=== PATIENT | male | born 1950 | race Caucasian/White ===

== ENCOUNTER 2023-05-18 20:49 | Inpatient (IN) ==
[2023-05-18 21:32] LABS: Appearance Urine Clear (Clear); Bilirubin Urine 3+ (Negative); Blood Urine Trace-intact (Negative); Glucose Urine UA Trace (Negative); Ketones Urine Trace (Negative); Leukocyte Esterase Urine Negative (Negative); Nitrite Urine Negative (Negative); Protein Urine 1+ (Negative); Specific Gravity Urine 1.025 (1.000-1.030); Urobilinogen Urine Negative (Negative)
[2023-05-18 21:33] LABS: Color Urine Dark Yellow
[2023-05-18 21:35] LABS: Basophils # (auto) 0.06 K/uL (0.00-0.20); Basophils % (auto) 0.6 %; Eosinophils # (auto) 0.36 K/uL (0.00-0.50); Eosinophils % (auto) 3.8 %; Hematocrit (blood only) 41.9 % (42.0-52.0); Hemoglobin 14.9 g/dl (14.0-18.0); Immature Granulocytes # (auto) 0.03 K/uL (0.01-0.20); Immature Granulocytes % (auto) 0.3 %; Lymphocytes # (auto) 2.35 K/uL (1.20-3.40); Lymphocytes % (auto) 24.9 %; Mean Corpuscular Hgb Conc 35.6 g/dL (32.0-36.0); Mean Corpuscular Volume 84.5 fL (80.0-100.0); Mean Platelet Volume 9.6 fL (9.4-12.4); Monocytes # (auto) 0.92 K/uL (0.11-0.59); Monocytes % (auto) 9.8 %; Neutrophils % (auto) 60.6 %; Platelet Count 384 K/uL (130-400); RDW Standard Deviation 45.7 fL (36.4-46.3); Red Blood Count 4.96 M/uL (4.70-6.10); White Blood Count 9.42 K/ul (4.8-10.8)
[2023-05-18 21:50] LABS: Mucus Urine Present (None Prsent)
[2023-05-18 21:53] LABS: Albumin Globulin Ratio 1.7 (0.9-2); Albumin Level 4.5 gm/dl (3.4-5.0); BUN Creatinine Ratio 16.9 (10-20); Bilirubin,Total 12.1 mg/dl (0.2-1.0); Calcium 9.9 mg/dl (8.6-10.3); Est GFR (Non-African American) 62.2 ml/min; Globulin 2.7 gm/dl (2.5-4.0); Potassium 2.8 mmol/L (3.5-5.1); Total Protein 7.2 gm/dl (6.0-8.3)
[2023-05-18 21:53] LABS: Bacteria Urine Negative (Negative)
--- NOTE | 2023-05-18 22:11 | Emergency Department Note ---
Impression & Plan Jaundice, Elevated bilirubin ED Provider Note NAME: KIMBERLY MCDANIEL AGE: 72 SEX: M : 1950 ARRIVES VIA: Walk-In INFORMANT: Patient, ED PROVIDER(S): Eliza Phillips MD CHIEF COMPLAINT: Jaundice HPI: This is a 72-year-old female presenting for jaundice. Patient states that he recently had a cholecystectomy. He had an unremarkable follow-up with his surgeon. He has been recovering well. However over the past 1 PCC's at this point physical He has noted that he is becoming more yellow. He has had somewhat loose stools occasionally. His stools are also martinez in color. He notes his eyes are yellow as well as his skin. He notes some slight nausea. No significant pain only mild crampy pain very rarely. Otherwise no fevers, chills, profuse vomiting. Patient recently just returned from a trip to [facility]. States he felt unwell during the entire trip. Prior to going on the trip he had a bout of significant right/middle abdominal pain. He notes his pain had resolved and and he went on his trip. ROS: See above HPI for pertinent positives & negatives. A total of 10 systems reviewed and were otherwise negative. PAST MEDICAL HISTORY: See Below PAST SURGICAL HISTORY: See Below FAMILY HISTORY: See Below SOCIAL HISTORY: See Below HOME MEDICATIONS: See Below ALLERGIES: See Below VITALS: See Below PHYSICAL EXAMINATION: General: resting comfortably in no acute distress Head: Normocephalic and atraumatic Eyes: Scleral icterus, EOMI Ear, nose, throat: Normal external exam Neck: Normal range of motion Respiratory: lungs clear to auscultation bilaterally Cardiovascular: Regular rate/rhythm, no murmur GI: soft, nontender, no guarding or rebound Extremities: nontender, moves all extremities Neuro: The patient awake and alert, appropriately conversive, no focal deficits, symmetric faces Skin: Jaundiced skin centrally MEDICAL DECISION MAKING: This is a 72-year-old male presenting for jaundice. Patient underwent cholecystectomy. Now having jaundice skin, martinez stools, diarrhea. Also had recent travel to Will do basic blood work as well as CT imaging to rule out any intra-abdominal infection versus retained stone. -Patient has a reassuring physical exam without any abdominal tenderness at this time. Vital signs reviewed showing no tachycardia, hypotension or fever. -Lab does confirm jaundice with bilirubin over 12 at this time, will order direct -Direct bilirubin 6.1 -Patient also has transaminitis with AST 135 ALT 274, alk phos 470, lipase 110 -Urinalysis shows mild WBC without leuk esterase, nitrates, possible contamination, no bacteria -Otherwise CT abdomen/pelvis reveals hepatic steatosis without clear cause for patient's current jaundice. -Discussed case with on-call GI, Dr. Shrestha, who recommends admission to the hospital for MRCP and possible further testing -After long discussion, patient is requesting transfer to [facility] for his further care. I did advise that because we have the capacity here this to be a nonemergent transfer. -After discussion with both hospitalist and GI physician at [facility], they declined transfer as they have significant overcrowding with no current available beds and multiple ER holds. They state that they could reconsider after MRCP if needed. -Patient comfortable with admission to this hospital. Differential diagnosis: Retained biliary stone, cholangitis, pancreatic cancer, postsurgical abscess ER treatment provided: See below Diagnostics interpreted by me: ECG: None Cardiac Monitoring: An order was placed for continuous cardiac monitoring. The monitor shows a rate of 55 with sinus rhythm. Laboratory studies: As stated above and show below. Imaging studies: See below. Past Med/Surg History Medical History Situational stress Hx of gout Elevated PSA Osteoarthritis BPH (benign prostatic hyperplasia) Sleep apnea Hypercholesteremia HTN (hypertension) Surgical History Hx laparoscopic cholecystectomy (04/23/23) Hx of bilateral cataract extraction H/O hand surgery History of esophagogastroduodenoscopy (EGD) History of colonoscopy History of cardiac cath S/P wisdom tooth extraction S/P parathyroidectomy S/P vasectomy S/P tonsillectomy Family History Mother Colorectal cancer Father Myocardial infarction Heart disease Brother Kidney stones Hypertension Other No family history of adverse response to anesthesia Denies family history of Ovarian cancer Prostate cancer Breast cancer Social History Smoking Status: Never smoker Second Hand Exposure: No; Do You Dip or Chew Tobacco: No; Hx Alcohol Use: Yes Alcohol type: beer Alcohol Intake Frequency: 2-3 x/Week Hx Substance Use: No Preferred Language: Danish Communication Ability: Effective Visual Impairment: No Limitations Hearing Ability: Use of Hearing Aid Valve Grinder Required: No Beliefs That Will Affect Care: None marital status: Current Living Situation: Spouse current occupational status: retired current occupation: used to work in the [employer] and then worked for the [employer] Feels Safe at Home: Yes Safety Concerns: Feels Safe At This Time Childhood Exposure to Second-Hand Smoke: Yes Diet: regular Diet Comment: regular during the past year weight has: remained stable Dental Care, Regularly: Yes Physical Activity Frequency: 3-4 Times per Week Physical Activity Frequency Comment: golfs, walking actively about 1 hour Seatbelt Use: always Sunscreen Use: Yes Assistive Devices: None Allergies Allergies Allergy/AdvReac Type Severity Reaction Status Date / Time hydrocodone [From Vicodin] AdvReac Anxiety Verified 05/09/23 10:39 Home Meds Home Medications Medication Instructions Recorded Confirmed demetrio seed oil-omega 3-6-9 1,000 mg 1 cap PO BID 03/31/20 05/09/23 (630 mg-210 mg-72mg) capsule coenzyme Q10 200 mg oral wafer 200 mg PO BID 03/31/20 05/09/23 multivitamin (Daily Multi-Vitamin 1 tab PO QPM 03/31/20 05/09/23 tablet) ezetimibe 10 mg tablet (Zetia) 10 mg PO QAM 04/10/23 05/09/23 sertraline 50 mg tablet 50 mg PO QAM 04/10/23 05/09/23 Previous Rx's Medication Instructions Recorded rosuvastatin 40 mg tablet 40 mg PO QAM #90 tabs 05/30/22 labetalol 300 mg tablet 300 mg PO BID 90 days #180 tabs 08/27/22 lisinopril 40 mg tablet 40 mg PO QPM #90 tabs 11/13/22 hydrochlorothiazide 25 mg tablet 25 mg PO QAM #90 tabs 12/05/22 tamsulosin 0.4 mg capsule (Flomax) 0.4 mg PO BID #180 caps 12/20/22 amlodipine 10 mg tablet 10 mg PO QPM #90 tabs 03/26/23 potassium chloride 20 mEq 20 meq PO BID #180 tabs 04/29/23 tablet,extended release Results & Data (ED) Vital Signs Vital Signs - 24 hr 05/18/23 20:57 05/18/23 21:25 05/18/23 21:30 Temperature 36.5 C Temperature Source Temporal Artery Scan Pulse Rate 68 53 L 54 L Respiratory Rate 18 15 Respiratory Effort / Characteristics Non-Labored Spontaneous Respiratory Depth Normal Respiratory Pattern Regular Blood Pressure 141/93 H 127/79 Blood Pressure Mean 109 95 Blood Pressure Position Sitting Pulse Oximetry 96 96 Oxygen Delivery Method Room Air Room Air Sepsis Recent Fever Within 48 Hours No Sepsis New/Unexplained Change in Mental Status N/A Sepsis Action Taken by Nursing No Action Required 05/18/23 22:00 05/18/23 22:25 05/18/23 22:30 Temperature Temperature Source Pulse Rate 54 L 58 L 57 L Respiratory Rate 14 20 18 Respiratory Effort / Characteristics Respiratory Depth Respiratory Pattern Blood Pressure 146/78 H 149/90 H 130/75 Blood Pressure Mean 100 109 93 Blood Pressure Position Pulse Oximetry 95 96 96 Oxygen Delivery Method Room Air Room Air Room Air Sepsis Recent Fever Within 48 Hours Sepsis New/Unexplained Change in Mental Status Sepsis Action Taken by Nursing 05/18/23 23:30 05/19/23 00:00 05/19/23 00:30 Temperature Temperature Source Pulse Rate 56 L 50 L 55 L Respiratory Rate 16 18 16 Respiratory Effort / Characteristics Respiratory Depth Respiratory Pattern Blood Pressure 135/86 126/81 128/81 Blood Pressure Mean 102 96 96 Blood Pressure Position Pulse Oximetry 97 95 97 Oxygen Delivery Method Room Air Room Air Room Air Sepsis Recent Fever Within 48 Hours Sepsis New/Unexplained Change in Mental Status Sepsis Action Taken by Nursing 05/19/23 01:43 05/19/23 02:00 Temperature Temperature Source Pulse Rate 64 62 Respiratory Rate 16 Respiratory Effort / Characteristics Respiratory Depth Respiratory Pattern Blood Pressure 116/77 Blood Pressure Mean 90 Blood Pressure Position Pulse Oximetry 94 Oxygen Delivery Method Room Air Sepsis Recent Fever Within 48 Hours Sepsis New/Unexplained Change in Mental Status Sepsis Action Taken by Nursing Laboratory Data 05/18/23 21:16 05/18/23 21:16 Lab Results 05/18/23 05/18/23 Range/Units 21:10 21:16 WBC 9.42 (4.8-10.8) K/ul RBC 4.96 (4.70-6.10) M/uL Hgb 14.9 (14.0-18.0) g/dl Hct 41.9 L (42.0-52.0) % MCV 84.5 (80.0-100.0) fL MCH 30.0 (25.0-34.0) pg MCHC 35.6 (32.0-36.0) g/dL RDW Std Deviation 45.7 (36.4-46.3) fL RDW Coeff of Vasiliy 15.0 H (11.5-14.5) % Plt Count 384 (130-400) K/uL MPV 9.6 (9.4-12.4) fL Immature Gran % (Auto) 0.3 % Neut % (Auto) 60.6 % Lymph % (Auto) 24.9 % Dixon % (Auto) 9.8 % Eos % (Auto) 3.8 % Baso % (Auto) 0.6 % Neut # (Auto) 5.70 (1.40-6.50) K/uL Lymph # (Auto) 2.35 (1.20-3.40) K/uL Dixon # (Auto) 0.92 H (0.11-0.59) K/uL Eos # (Auto) 0.36 (0.00-0.50) K/uL Baso # (Auto) 0.06 (0.00-0.20) K/uL Immature Gran # (Auto) 0.03 (0.01-0.20) K/uL Sodium 137 (136-145) mmol/L Potassium 2.8 L (3.5-5.1) mmol/L Chloride 97 L (98-107) mmol/L Carbon Dioxide 29 (21-32) mmol/L Anion Gap 11 (3-11) BUN 20 (6-23) mg/dl Creatinine 1.18 (0.6-1.4) mg/dl Est Cr Clr Drug Dosing 63.0 ml/min Est GFR ( Amer) 72.0 ml/min Est GFR (Non-Af Amer) 62.2 ml/min BUN/Creatinine Ratio 16.9 (10-20) Glucose 102 H (70-99(Fasting)) mg/dl Calcium 9.9 (8.6-10.3) mg/dl Total Bilirubin 12.1 H (0.2-1.0) mg/dl Direct Bilirubin 6.1 H (0-0.2) mg/dl AST 135 H (13-39) U/L ALT 274 H (7-52) U/L Alkaline Phosphatase 470 H (34-104) U/L Total Protein 7.2 (6.0-8.3) gm/dl Albumin 4.5 (3.4-5.0) gm/dl Globulin 2.7 (2.5-4.0) gm/dl Albumin/Globulin Ratio 1.7 (0.9-2) Lipase 110 H (11-82) U/L Urine Color Dark Yellow Urine Appearance Clear (Clear) Urine pH 6.0 (4.5-7.5) Ur Specific [place] 1.025 (1.000-1.030) Urine Protein 1+ H (Negative) Urine Glucose (UA) Trace H (Negative) Urine Ketones Trace H (Negative) Urine Blood Trace-intact H (Negative) Urine Nitrite Negative (Negative) Urine Bilirubin 3+ H (Negative) Urine Urobilinogen Negative (Negative) Ur Leukocyte Esterase Negative (Negative) Urine RBC 5-10 H (0-4) /hpf Urine WBC 10-30 H (0-5) /hpf Ur Epithelial Cells 5-10 H (0-5) /lpf Urine Bacteria Negative (Negative) Hyaline Casts 10-30 H (0-5) /lpf WBC Casts 5-10 H (0) /lpf Urine Mucus Present A (None Prsent) Administered Medications Acetaminophen (Acetaminophen 500 Mg Tab) 500 mg PO Q6H PRN PRN Reason: pain/fever Stop: 06/18/23 05:09 Last Admin: 05/19/23 06:27 Dose: 500 mg Documented By: JUANA Ezetimibe (Ezetimibe 10 Mg Tab) 10 mg PO [facility] Stop: 06/18/23 08:59 Last Admin: 05/19/23 08:06 Dose: 10 mg Documented By: OLIVER Enoxaparin Sodium (Enoxaparin Inj 40 Mg/0.4 Ml Syr) 40 mg SQ [facility] Stop: 06/18/23 08:59 Last Admin: 05/19/23 08:07 Dose: 40 mg Documented By: OLIVER Hydrochlorothiazide (Hydrochlorothiazide 25 Mg Tab) 25 mg PO [facility] Stop: 06/18/23 08:59 Last Admin: 05/19/23 08:07 Dose: 25 mg Documented By: OLIVER Lorazepam 1 mg/ Syringe 1 mls @ 2 mls/min IV ONCE PRN PRN Reason: Anxiety Stop: 06/18/23 09:39 Last Admin: 05/19/23 10:26 Dose: 2 mls/min Documented By: OLIVER Labetalol HCl (Labetalol Hcl 300 Mg Tab) 300 mg PO BID MARCELINA Stop: 06/18/23 08:59 Last Admin: 05/19/23 08:06 Dose: Not Given Documented By: OLIVER Sertraline HCl (Sertraline Hcl 50 Mg Tablet) 50 mg PO QAM MARCELINA Stop: 06/18/23 08:59 Last Admin: 05/19/23 08:06 Dose: 50 mg Documented By: OLIVER Tamsulosin HCl (Tamsulosin Hcl 0.4 Mg Cap) 0.4 mg PO BID [facility] Stop: 06/18/23 08:59 Last Admin: 05/19/23 08:06 Dose: 0.4 mg Documented By: OLIVER Discontinued Medications Amlodipine Besylate (Amlodipine Besylate 5 Mg Tab) 10 mg PO NOW ONE Stop: 05/19/23 03:05 Last Admin: 05/19/23 03:38 Dose: 10 mg Documented By: OLIVER(2) Potassium Chloride (K Huey / Wtr) 10 meq in 100 mls @ 100 mls/hr IV Q1H MARCELINA Stop: 05/19/23 10:59 Last Admin: 05/19/23 13:56 Dose: 75 mls/hr Documented By: Infusion: 05/19/23 13:54 Dose: Infused Documented By: Admin: 05/19/23 12:42 Dose: 75 mls/hr Documented By: Infusion: 05/19/23 12:41 Dose: Infused Documented By: Infusion: 05/19/23 11:24 Dose: 75 mls/hr Documented By: Infusion: 05/19/23 10:33 Dose: 0 mls/hr Documented By: Admin: 05/19/23 10:02 Dose: 75 mls/hr Documented By: Infusion: 05/19/23 10:00 Dose: Infused Documented By: Admin: 05/19/23 08:18 Dose: 75 mls/hr Documented By: Infusion: 05/19/23 08:17 Dose: Infused Documented By: Infusion: 05/19/23 07:11 Dose: 75 mls/hr Documented By: Admin: 05/19/23 07:02 Dose: 100 mls/hr Documented By: Infusion: 05/19/23 06:41 Dose: Infused Documented By: Admin: 05/19/23 05:41 Dose: 100 mls/hr Documented By: UJANA Piperacillin Sod/Tazobactam (Sod 4.5 gm/ Dextrose) 100 mls @ 200 mls/hr IV NOW ONE; Protocol Stop: 05/19/23 05:29 Last Infusion: 05/19/23 06:31 Dose: Infused Documented By: Admin: 05/19/23 05:40 Dose: 200 mls/hr Documented By: JUANA Ioversol (Optiray 320 500ml) 87 ml IV ONCE ONE Stop: 05/18/23 22:18 Last Admin: 05/18/23 22:17 Dose: 87 ml Documented By: JUANY Lisinopril (Lisinopril 40 Mg Tab) 40 mg PO NOW ONE Stop: 05/19/23 03:05 Last Admin: 05/19/23 03:38 Dose: 40 mg Documented By: OLIVER(2) Tamsulosin HCl (Tamsulosin Hcl 0.4 Mg Cap) 0.4 mg PO NOW ONE Stop: 05/19/23 03:05 Last Admin: 05/19/23 03:38 Dose: 0.4 mg Documented By: OLIVER(2) Discharge Plan Visit Data Chief Complaint: GI Assessment Stated Complaint: JAUNDICE,?BLOCKED BILE DUCT,GALLBADER REMOVAL COMP ED Provider: Eliza Phillips Discharge Problem: Jaundice, Elevated bilirubin Patient Disposition: Admitted As Inpatient Discharge Instructions Interventions: ED Discharge Assessment Last Done: 05/19/23 04:20
[2023-05-18] MEDS ORDERED: OPTIRAY 320 500ml IV ONE (22:17)
--- NOTE | 2023-05-18 23:57 | CT Scan Report ---
Exam(s): CT ABDOMEN + PELVIS With Contrast IV Amt: 87 ml optiray 320 EXAM: CT Abdomen and Pelvis With Intravenous Contrast CLINICAL HISTORY: Reason for exam: Recent cholecystomy, pain, jaundice?. TECHNIQUE: Axial computed tomography images of the abdomen and pelvis with intravenous contrast. CTDI is 26.62 mGy and DLP is 1245.4 mGy-cm. Automated exposure control was utilized for the study. A dose lowering technique was utilized adhering to the principles of ALARA. CONTRAST: Patient received 87 ml optiray 320 of IV contrast COMPARISON: No relevant prior studies available. FINDINGS: Lung bases: Unremarkable. No mass. No consolidation. ABDOMEN: Liver: Hepatic steatosis. Gallbladder and bile ducts: Cholecystectomy. No ductal dilation. Pancreas: Unremarkable. No mass. No ductal dilation. Spleen: Unremarkable. No splenomegaly. Adrenals: Unremarkable. No mass. Kidneys and ureters: Unremarkable. No hydronephrosis or delayed nephrogram. Stomach and bowel: Diverticulosis, without acute diverticulitis. No small bowel obstruction. No free intraperitoneal air. PELVIS: Appendix: No findings to suggest acute appendicitis. Bladder: Unremarkable. No mass. Reproductive: Enlarged prostate gland, measures 5.2 cm. ABDOMEN and PELVIS: Intraperitoneal space: Unremarkable. No free air. No significant fluid collection. Bones/joints: Degenerative changes of the spine. No acute fracture. No dislocation. Soft tissues: Fat-containing bilateral inguinal hernias. Vasculature: Atherosclerotic changes of the aorta. No abdominal aortic aneurysm. Lymph nodes: Unremarkable. No enlarged lymph nodes. IMPRESSION: 1. No hydronephrosis or delayed nephrogram. 2. Enlarged prostate gland, measures 5.2 cm. 3. Cholecystectomy. 4. Hepatic steatosis. 5. Fat-containing bilateral inguinal hernias. 6. Diverticulosis, without acute diverticulitis. No small bowel obstruction. No free intraperitoneal air. Electronically signed by: John Kay MD 05/18/23 23:56 PM
--- NOTE | 2023-05-19 00:40 | History & Physical Report ---
Date of Service May 19, 2023 Assessment & Plan (1) S/P cholecystectomy: (2) Hypertriglyceridemia: (3) Anxiety: (4) BPH associated with nocturia: (5) HTN (hypertension): (6) Hypercholesteremia: (7) Jaundice: (8) Elevated bilirubin: Plan Elevated Bilirubin | Jaundice | S/P Cholecystectomy -CT A/P without obvious CBD enlargement -Total bili 12.1, Direct bili 6.1, AST- 135, ALT- 274, Alk phos- 470 -MRCP ordered, differential includes cholangitis, bile duct stone, cholangiocarcinoma, biliary colic, hepatitis -[facility]/Dr. Garcia consulted -No obvious infection with normal CBC, afebrile but will order 1x dose of Zosyn while awaiting further imaging as cholangitis remains on differential -Hepatitis panel pending. Patient has history of recent travel to [facility], however symptoms seem to have started the day prior to trip and no eosinophilia, low suspicion for parasite. -Repeat CBC w diff, CMP in a.m. -NPO while awaiting GI evaluation -Zofran PRN for nausea Hypokalemia -Patient on potassium sparing diuretics at home -Ordered KCl as outpatient, but patient unable to tolerate PO repletion -K of 2.8 on arrival, repletion ordered. Repeat metabolic panel in a.m. Hypertension -Continue home Lisinopril, Labetalol, HCTZ, Amlodipine Hypercholesteremia -Continue home statin BPH -Continue Flomax Anxiety -Continue home Sertraline Diet: NPO Admit to Med/Surg VTE Prophylaxis: Lovenox Code Status: Full Code History of Present Illness Primary Care Provider: Cyndi Silva MD Nirav Stout is a 72 year-old male with a past medical history of HTN, arthritis, anxiety, s/p cholecystectomy (04/23/23) who presented to the ED due to nausea and blane/martinez colored stools. He notes that he had been feeling well since his surgery- only occasional nausea. But last Saturday he was in [place] and experienced an episode of LUQ cramping/abdominal pain after taking his evening medications. However the next day he felt well enough to go on his scheduled trip to the [facility] with his . During the trip he felt under the weather with nausea, fatigue, etc. but starting this past Saturday he has had significant nausea and grayish colored stools (now loose/diarrhea consistency). He notes that he and his had been in the [place] on vacation when symptoms worsened, they only [place] the [place] in the past day. His also notes that he has appeared jaundiced in the past day. He denies abdominal cramping/pain, denies chest pain/shortness of breath, fever, bodyaches/chills. ED Course: -CT A/P obtained, no obvious widening of CBD -Dr. Phillips discussed case with [facility]Dr. Garcia Allergies Allergy/AdvReac Type Severity Reaction Status Date / Time hydrocodone [From Vicodin] AdvReac Anxiety Verified 05/09/23 10:39 Home Medications Medication Instructions Recorded Confirmed Type demetrio seed oil-omega 3-6-9 1,000 mg 1 cap PO BID 03/31/20 05/09/23 History (630 mg-210 mg-72mg) capsule coenzyme Q10 200 mg oral wafer 200 mg PO BID 03/31/20 05/09/23 History multivitamin (Daily Multi-Vitamin 1 tab PO QPM 03/31/20 05/09/23 History tablet) rosuvastatin 40 mg tablet 40 mg PO QAM #90 tabs 05/30/22 05/09/23 Rx labetalol 300 mg tablet 300 mg PO BID 90 days #180 tabs 08/27/22 05/09/23 Rx lisinopril 40 mg tablet 40 mg PO QPM #90 tabs 11/13/22 05/09/23 Rx hydrochlorothiazide 25 mg tablet 25 mg PO QAM #90 tabs 12/05/22 05/09/23 Rx tamsulosin 0.4 mg capsule (Flomax) 0.4 mg PO BID #180 caps 12/20/22 05/09/23 Rx amlodipine 10 mg tablet 10 mg PO QPM #90 tabs 03/26/23 05/09/23 Rx ezetimibe 10 mg tablet (Zetia) 10 mg PO QAM 04/10/23 05/09/23 History sertraline 50 mg tablet 50 mg PO QAM 04/10/23 05/09/23 History potassium chloride 20 mEq 20 meq PO BID #180 tabs 04/29/23 05/09/23 Rx tablet,extended release Past Med/Surg History Medical History Situational stress hx-had been having a difficult time in the workplace and used the zoloft "to level things out for him" Hx of gout remote hx Elevated PSA Osteoarthritis BPH (benign prostatic hyperplasia) Sleep apnea CPAP Hypercholesteremia HTN (hypertension) Surgical History Hx laparoscopic cholecystectomy (04/23/23) Laparoscopic Cholecystectomy(Not Applicable) - Praveen Murray, DO Hx of bilateral cataract extraction H/O hand surgery History of esophagogastroduodenoscopy (EGD) History of colonoscopy History of cardiac cath ~age 45, [place], [place]; no stents, abnormal stress test during a study at the [employer]>no findings; f/u PCP S/P wisdom tooth extraction S/P parathyroidectomy S/P vasectomy S/P tonsillectomy Family History Mother Colorectal cancer Father Myocardial infarction Heart disease Brother Kidney stones Hypertension Other No family history of adverse response to anesthesia Denies family history of Ovarian cancer Prostate cancer Breast cancer Social History Smoking Status: Never smoker Second Hand Exposure: No; Do You Dip or Chew Tobacco: No; Hx Alcohol Use: Yes Alcohol type: beer Alcohol Intake Frequency: 2-3 x/Week Hx Substance Use: No Preferred Language: Spanish Communication Ability: Effective Visual Impairment: No Limitations Hearing Ability: Use of Hearing Aid 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: No Beliefs That Will Affect Care: None marital status: Current Living Situation: Spouse current occupational status: retired current occupation: used to work in the [employer] and then worked for the [employer] Feels Safe at Home: Yes Safety Concerns: Feels Safe At This Time Childhood Exposure to Second-Hand Smoke: Yes Diet: regular Diet Comment: regular during the past year weight has: remained stable Dental Care, Regularly: Yes Physical Activity Frequency: 3-4 Times per Week Physical Activity Frequency Comment: golfs, walking actively about 1 hour Seatbelt Use: always Sunscreen Use: Yes Assistive Devices: None Review of Systems Review of Systems: As per above Physical Exam Constitutional: WD/WN, vitals as above Eyes: Scleral icterus ENMT: Ears: no external ear abnormality Nose: no external nose abnormality Moist mucous membranes Respiratory: normal respiratory effort, lungs clear to auscultation Cardiovascular: Rate/Rhythm: regular rate and regular rhythm Extremities: no edema Gastrointestinal (Abdomen): Inspection/Auscultation: abdomen normal to inspection and normal bowel sounds; abdomen not distended Percussion/Palpation: abdomen soft; abdomen nontender and no hepatosplenomegaly Musculoskeletal: Moves all limbs independently Skin: + jaundice Psychiatric: A+Ox3, euthymic affect Results & Data Results & Data Vital Signs (Past 12 Hours) Vital Signs Temp Pulse Resp BP Pulse Ox O2 Del Method 05/19/23 00:00 50 L 18 126/81 95 Room Air 05/18/23 23:30 56 L 16 135/86 97 Room Air 05/18/23 22:30 57 L 18 130/75 96 Room Air 05/18/23 22:25 58 L 20 149/90 H 96 Room Air 05/18/23 22:00 54 L 14 146/78 H 95 Room Air 05/18/23 21:30 54 L 15 127/79 96 Room Air 05/18/23 21:25 53 L 05/18/23 20:57 36.5 C 68 18 141/93 H 96 Room Air Supervising Physician Co-Signing Physician Notes Attending addendum: I have physically seen this patient, have supervised the medical residents activities, and agree with the H&P unless as otherwise noted. Assessment and Plan: Abnormal LFTs- Status post laparoscopic cholecystectomy on 04/23/2023 Patient presented to the emergency department with concerns regarding friends and family noticing him becoming yellow. The patient reports that he had traveled to [place] and went to dinner with friends, and ate well, and then shortly thereafter when he went back to his hotel, and took his medications, he developed significant abdominal discomfort. His symptoms improved, and then the following day Saturday he went on a trip with 150 other people to the [facility]. While he was admitted colic, he became fatigued, and generally weak, and gradually became more yellow. He presents to the emergency department as send he got back from the trip, for evaluation. He reports no unusual food intakes, and does not know of any other person on the trip who had similar symptoms. He is not aware of any type of insect or other bites while he was there. AST 135, ALT 274, total bilirubin 12.1, ALP 470, and lipase 110 CT scan of abdomen pelvis without significant CBD enlargement MRCP ordered Consults to [facility] gastroenterology Dr. Garcia Order acute hepatitis panel NPO until further evaluation Hypokalemia- Potassium 2.8 on admission Supplementation with IV fluids, and recheck laboratories in a.m. Hypertension- Continue lisinopril, labetalol, and amlodipine Hold HCTZ Remaining orders and notations as noted Resident Activity Tracking Resident Involvement: Resident Care Provided Care Provided: Adult Hospital Medicine
[2023-05-19 02:02] LABS: Bilirubin Direct 6.1 mg/dl (0-0.2)
[2023-05-19] MEDS ORDERED: lisinopril 40 MG TAB PO ONE (03:04)
[2023-05-19] MEDS ORDERED: amLODIPine BESYLATE 5 MG TAB PO ONE (03:04)
[2023-05-19] MEDS ORDERED: TAMSULOSIN HCL 0.4 MG CAP PO ONE (03:04)
[2023-05-19] MEDS ORDERED: POLYETHYLENE (MIRALAX) 17 GM PACK PO PRN (04:50)
[2023-05-19] MEDS ORDERED: ONDANSETRON INJ 2 MG/ML 2 ML VIAL IV PRN (04:50)
[2023-05-19] MEDS ORDERED: MELATONIN 3 MG TAB PO PRN (04:50)
[2023-05-19] MEDS ORDERED: PIPERACILLIN/TAZOBACTAM 4.5 GM in DEXTROSE 5% MINI-B 100 ML IV ONE (05:00)
[2023-05-19] MEDS ORDERED: ACETAMINOPHEN 500 MG TAB PO PRN (05:10)
[2023-05-19] MEDS: POTASSIUM CHLORIDE / WTR 10 MEQ/100 ML PLCT IV SCH ×6 (05:41→13:56)
[2023-05-19] MEDS: EZETIMIBE 10 MG TAB PO SCH (08:06)
[2023-05-19] MEDS: LABETALOL HCL 300 MG TAB PO SCH ×2 (08:06→20:04)
[2023-05-19] MEDS: SERTRALINE HCL 50 MG TABLET PO SCH (08:06)
[2023-05-19] MEDS: TAMSULOSIN HCL 0.4 MG CAP PO SCH ×2 (08:06→20:04)
[2023-05-19] MEDS: hydroCHLOROthiazide 25 MG TAB PO SCH (08:07)
[2023-05-19] MEDS: ENOXAPARIN INJ 40 MG/0.4 ML SYR SQ SCH (08:07)
[2023-05-19] MEDS ORDERED: ROSUVASTATIN CALCIUM 20 MG TAB PO SCH (09:00)
[2023-05-19] MEDS ORDERED: LORazepam 1 MG in SYRINGE 0.5 ML IV PRN (09:40)
--- NOTE | 2023-05-19 11:36 | Magnetic Resonance Report ---
MR MRCP CLINICAL HISTORY: jaundice, elevated bili TECHNIQUE: Multiplanar multisequence MR images of the abdomen were obtained, as per MRCP protocol. . COMPARISON: Comparison is made to CT abdomen pelvis 05/18/2023 FINDINGS: Lower chest: No acute abnormality Liver: Unremarkable. No focal lesions are seen. Gallbladder and biliary tree: No calcified gallstones. Normal caliber wall. No intra- or extrahepatic biliary ductal dilation. Pancreas: Unremarkable, no focal lesions. Spleen: Unremarkable. Adrenals: Unremarkable. Kidneys and ureters: Unremarkable. Bowel: Unremarkable. Lymph nodes Retroperitoneal: Subcentimeter elie hepatis nodes are noted. Mesenteric: Unremarkable. Peritoneum: Normal Vessels: Unremarkable. Abdominal wall: Unremarkable. Bones: Unremarkable. IMPRESSION: No acute abnormality and in particular no evidence of choledocholithiasis or biliary ductal obstructi on. ACT 112: Negative or not required by law. Electronically signed by: Haseeb Chan M.D. 05/19/2023 11:34 AM
--- NOTE | 2023-05-19 14:42 | Communication Note ---
Date of Service: May 19, 2023 Please refer to the H&P dictated by resident Tami Maldonado for details of presentation on admission earlier this morning. In brief, the patient had c holecystectomy done on 04/23/2023. He was feeling well since the surgery. However about a week ago, he had experienced an episode of right upper quadrant pain. In the next few days when he was at [facility], he felt nauseated and fatigued. He also noted martinez-colored stools. He thus presented to the emergency room where he was found to have obstructive jaundice. Patient had an MRCP done that did not show any obstruction, biliary ductal dilatation, or choledocholithiasis. Awaiting GI input.
--- NOTE | 2023-05-19 15:56 | Gastrointestinal Consultation ---
Date of Consultation May 19, 2023 Assessment & Plan (1) Jaundice: (2) Diarrhea: Plan jaundice and diarrhea could be viral hepatitis, no weight loss or anorexia so less likely malignancy recs: follow up hepatitis panel check EBV supportive care, IVFs trend LFTs if viral workup negative will need EUS to further evaluate Thank you for allowing me to partiicpate in the care of this patient. History of Present Illness Attending Physician: Jaqueline Belle MD History of Present Illness 72 yo male with hx HTN, anxiety, recent CCY 3 weeks ago here with jaundice and nausea. He was doing well until recently developed an episode of right sided abdominal pains when he was in [place] last week but this pain improved and he went on his vacation to [facility] with his . While in he developed jaundice and diarrhea, did eat seafood there. notes fatigue as well and martinez stools. Imaging done here including MRCP shows no stones or biliary dilation. Tbili 12 with direct of 6. Hepatitis panel pending. CBC, CMP reviewed. VSS. Allergies Allergy/AdvReac Type Severity Reaction Status Date / Time hydrocodone [From Vicodin] AdvReac Anxiety Verified 05/09/23 10:39 Home Medications Medication Instructions Recorded Confirmed Type demetrio seed oil-omega 3-6-9 1,000 mg 1 cap PO BID 03/31/20 05/09/23 History (630 mg-210 mg-72mg) capsule coenzyme Q10 200 mg oral wafer 200 mg PO BID 03/31/20 05/09/23 History multivitamin (Daily Multi-Vitamin 1 tab PO QPM 03/31/20 05/09/23 History tablet) rosuvastatin 40 mg tablet 40 mg PO QAM #90 tabs 05/30/22 05/09/23 Rx labetalol 300 mg tablet 300 mg PO BID 90 days #180 tabs 08/27/22 05/09/23 Rx lisinopril 40 mg tablet 40 mg PO QPM #90 tabs 11/13/22 05/09/23 Rx hydrochlorothiazide 25 mg tablet 25 mg PO QAM #90 tabs 12/05/22 05/09/23 Rx tamsulosin 0.4 mg capsule (Flomax) 0.4 mg PO BID #180 caps 12/20/22 05/09/23 Rx amlodipine 10 mg tablet 10 mg PO QPM #90 tabs 03/26/23 05/09/23 Rx ezetimibe 10 mg tablet (Zetia) 10 mg PO QAM 04/10/23 05/09/23 History sertraline 50 mg tablet 50 mg PO QAM 04/10/23 05/09/23 History potassium chloride 20 mEq 20 meq PO BID #180 tabs 04/29/23 05/09/23 Rx tablet,extended release Patient History Medical History Situational stress hx-had been having a difficult time in the workplace and used the zoloft "to level things out for him" Hx of gout remote hx Elevated PSA Osteoarthritis BPH (benign prostatic hyperplasia) Sleep apnea CPAP Hypercholesteremia HTN (hypertension) Surgical History Hx laparoscopic cholecystectomy (04/23/23) Laparoscopic Cholecystectomy(Not Applicable) - Praveen Murray, DO Hx of bilateral cataract extraction H/O hand surgery History of esophagogastroduodenoscopy (EGD) History of colonoscopy History of cardiac cath ~age 45, [place], [place]; no stents, abnormal stress test during a study at the [facility] base>no findings; f/u PCP S/P wisdom tooth extraction S/P parathyroidectomy S/P vasectomy S/P tonsillectomy Family History Mother Colorectal cancer Father Myocardial infarction Heart disease Brother Kidney stones Hypertension Other No family history of adverse response to anesthesia Denies family history of Ovarian cancer Prostate cancer Breast cancer Social History Smoking Status: Never smoker Second Hand Exposure: No; Do You Dip or Chew Tobacco: No; Hx Alcohol Use: Yes Alcohol type: beer Alcohol Intake Frequency: 2-3 x/Week Hx Substance Use: No Preferred Language: Romansh Communication Ability: Effective Visual Impairment: No Limitations Hearing Ability: Use of Hearing Aid Permit Technician Required: No Beliefs That Will Affect Care: None marital status: Current Living Situation: Spouse current occupational status: retired current occupation: used to work in the [employer] and then worked for the [employer] Feels Safe at Home: Yes Safety Concerns: Feels Safe At This Time Childhood Exposure to Second-Hand Smoke: Yes Diet: regular Diet Comment: regular during the past year weight has: remained stable Dental Care, Regularly: Yes Physical Activity Frequency: 3-4 Times per Week Physical Activity Frequency Comment: golfs, walking actively about 1 hour Seatbelt Use: always Sunscreen Use: Yes Assistive Devices: None Review of Systems Constitutional: no fever, no chills and no weight loss Eyes: as per Subjective / HPI Ear, Nose, Mouth, Throat: as per Subjective / HPI Respiratory: no dyspnea and no dyspnea on exertion Cardiovascular: no chest pain and no palpitations Gastrointestinal: as per Subjective / HPI Musculoskeletal: no joint pain and no swelling Integumentary: no rash and no lesions Neurologic: no numbness and no paresthesia Psychiatric: no depression and no anxiety Endocrine: no fatigue Hematologic / Lymphatic: no easy bleeding and no easy bruising Physical Exam Constitutional: WD/WN, vitals as above Eyes: EOM intact bilaterally Neck: normal visual inspection Respiratory: normal respiratory effort, lungs clear to auscultation Cardiovascular: RRR, no murmur, no edema Gastrointestinal (Abdomen): Inspection/Auscultation: abdomen normal to inspection; abdomen not distended Percussion/Palpation: abdomen soft; abdomen nontender and no hepatosplenomegaly Musculoskeletal: Head/Neck/Chest: normocephalic and head atraumatic Extremities: no cyanosis Skin: no rashes, warm and dry Neurologic: moves all extremities Psychiatric: Orientation: alert and cooperative Affect: euthymic affect Results & Data Vital Signs (Past 12 Hours) Vital Signs Temp Pulse Resp BP BP Pulse Ox O2 Del Method 05/19/23 15:24 36.5 C 62 16 111/68 95 Room Air 05/19/23 07:31 37.6 C H 55 L 16 116/73 95 Room Air 05/19/23 06:34 122/78 05/19/23 04:35 36.4 C L 16 137/86 95 Room Air 05/19/23 04:20 Room Air PG Care Time/CCT Total # of Minutes Spent Total Time Spent with Patient: Total time spent is greater than 50% in coordination of care (as documented) at patient's floor/unit and/or counseling patient: Coding Level of Care Code 08328 INT INP/OBS CARE 3/75MIN Diagnoses Jaundice R17 Diarrhea R19.7
[2023-05-19] MEDS: lisinopril 40 MG TAB PO SCH (20:04)
[2023-05-19] MEDS: amLODIPine BESYLATE 5 MG TAB PO SCH (20:05)
[2023-05-20] MEDS: LABETALOL HCL 300 MG TAB PO SCH ×2 (07:24→20:16)
[2023-05-20] MEDS: TAMSULOSIN HCL 0.4 MG CAP PO SCH ×2 (07:24→20:15)
[2023-05-20] MEDS: EZETIMIBE 10 MG TAB PO SCH (07:24)
[2023-05-20] MEDS: hydroCHLOROthiazide 25 MG TAB PO SCH (07:25)
[2023-05-20] MEDS: SERTRALINE HCL 50 MG TABLET PO SCH (07:25)
[2023-05-20] MEDS: ENOXAPARIN INJ 40 MG/0.4 ML SYR SQ SCH (07:25)
[2023-05-20 07:35] LABS: Basophils # (auto) 0.08 K/uL (0.00-0.20); Basophils % (auto) 1.1 %; Hematocrit (blood only) 37.2 % (42.0-52.0); Hemoglobin 13.3 g/dl (14.0-18.0); Immature Granulocytes # (auto) 0.04 K/uL (0.01-0.20); Immature Granulocytes % (auto) 0.5 %; Lymphocytes # (auto) 1.89 K/uL (1.20-3.40); Mean Corpuscular Hemoglobin 29.6 pg (25.0-34.0); Mean Corpuscular Hgb Conc 35.8 g/dL (32.0-36.0); Mean Corpuscular Volume 82.7 fL (80.0-100.0); Mean Platelet Volume 9.8 fL (9.4-12.4); Monocytes # (auto) 0.96 K/uL (0.11-0.59); Monocytes % (auto) 12.7 %; Neutrophils # (auto) 4.28 K/uL (1.40-6.50); Neutrophils % (auto) 56.7 %; Platelet Count 353 K/uL (130-400); RDW Coefficient of Variation 14.6 % (11.5-14.5); RDW Standard Deviation 43.7 fL (36.4-46.3); White Blood Count 7.55 K/ul (4.8-10.8)
[2023-05-20 07:58] LABS: Albumin Globulin Ratio 1.5 (0.9-2); Albumin Level 3.8 gm/dl (3.4-5.0); BUN Creatinine Ratio 19.7 (10-20); Bilirubin,Total 6.4 mg/dl (0.2-1.0); Calcium 9.2 mg/dl (8.6-10.3); Creatinine Clr Calc Pharmacy 55.9 ml/min; Est GFR (African American) 62.9 ml/min; Est GFR (Non-African American) 54.3 ml/min; Globulin 2.5 gm/dl (2.5-4.0); Potassium 2.7 mmol/L (3.5-5.1); Total Protein 6.3 gm/dl (6.0-8.3)
--- NOTE | 2023-05-20 09:45 | Communication Note ---
Date of Service: May 20, 2023 Patient tells me that he feels better today. he had some mild nausea prior to breakfast but this resolved with eating. He tells me that he and his feel that he is less jaundiced. rest of GI ros are unremarkable. LFTs improved today with t bili of 6.4, ast 70, alt 179 and alk phos 425. acute hepatitis panel and EBV labs are pending. will await these labs. if work up is unremarkable, would consider EUS as outpatient for further evaluation.
--- NOTE | 2023-05-20 10:01 | Billing Data ---
Date of Service May 20, 2023 Coding Level of Care Code 70218 INT INP/OBS CARE
[2023-05-20] MEDS: MAGNESIUM SULFATE / D5W 1 GM/100 ML BAG IV SCH ×2 (11:10→12:46)
--- NOTE | 2023-05-20 11:38 | Hospitalist Progress Note ---
Date of Service May 20, 2023 Assessment & Plan (1) Jaundice: Plan: -S/P Lap Cholecystectomy 04/[address] Murray. Recent travel to the [place], but symptoms started the day prior. -CT A/P without obvious CBD enlargement -Total bili 12.1 --> 6.4, LFTs improving -MRCP: no evidence of choledocholithiasis or biliary ductal obstruction -[facility] consulted - Check EBV and hepatitis panel (pending) - trend LFTs - consider EUS outpatient -Zofran PRN for nausea (2) Hypokalemia: Plan: -Patient on potassium sparing diuretics at home -Ordered KCl as outpatient, but patient unable to tolerate PO repletion -K of 2.8 on arrival, 60meq IV repletion ordered 05/19 - 05/20 K 2.7, Mag 1.8 --> 40meq and 2g Mag IV repletion ordered - recheck this afternoon (3) Anxiety: Plan: -Continue home Sertraline (4) BPH associated with nocturia: Plan: -Continue home Flomax (5) HTN (hypertension): Plan: -Continue home Lisinopril, Labetalol, HCTZ, Amlodipine (6) Hypercholesteremia: Plan: -Continue home Zetia and Statin Plan Dispo: continue inpatient stay VTE Prophylaxis: Lovenox Admission and Anticipated Discharge Date Admission Date: May 19, 2023 Subjective 1120 - Patient sitting up in bed, present at beside. Reports feeling better today and feels that he looks less jaundice. Continues to have martinez diarrhea. Denies abdominal pain. Good appetite. No fevers. No chest pain or SOB. Review of Systems Review of Systems: All systems reviewed & are unremarkable except as noted in Subjective Physical Exam Physical Exam: General: NAD, pleasant, VS as above HEENT: mild scleral icterus Resp: normal respiratory effort, lungs clear to auscultation CV: RRR, no murmur, Abd: normal bowel sounds, non tender, no hepatosplenomegaly Extremities: Moves all extremities, no edema Neuro: A&O x3, Skin: intact, jaundice, especially near shoulders and scalp Results & Data Results & Data Vital Signs (Past 12 Hours) Vital Signs Temp Pulse Resp BP Pulse Ox O2 Del Method 05/20/23 07:58 Room Air 05/20/23 07:16 36.3 C L 57 L 16 124/71 95 Room Air Laboratory Results CBC, chemsitry and mag reviewed PG Care Time/CCT Total # of Minutes Spent Total Time Spent with Patient: Total time spent is greater than 50% in coordination of care (as documented) at patient's floor/unit and/or counseling patient: Coding Level of Care Code 36955 SUB INP/OBS CARE 3/50MIN Diagnoses Jaundice R17 Hypokalemia E87.6 Anxiety F41.9 BPH associated with nocturia N40.1; R35.1 HTN (hypertension) I10 Hypercholesteremia E78.00
[2023-05-20] MEDS: POTASSIUM CHLORIDE / WTR 10 MEQ/100 ML PLCT IV SCH ×4 (11:44→15:42)
[2023-05-20 17:20] LABS: BUN Creatinine Ratio 18.4 (10-20); Calcium 9.1 mg/dl (8.6-10.3); Creatinine Clr Calc Pharmacy 46.7 ml/min; Est GFR (African American) 50.6 ml/min; Est GFR (Non-African American) 43.7 ml/min; Magnesium 2.4 mg/dl (1.7-2.4); Potassium 3.2 mmol/L (3.5-5.1)
[2023-05-20] MEDS: lisinopril 40 MG TAB PO SCH (20:16)
[2023-05-20] MEDS: amLODIPine BESYLATE 5 MG TAB PO SCH (20:16)
[2023-05-21 07:41] LABS: Basophils # (auto) 0.09 K/uL (0.00-0.20); Basophils % (auto) 1.1 %; Eosinophils # (auto) 0.37 K/uL (0.00-0.50); Eosinophils % (auto) 4.6 %; Hematocrit (blood only) 37.9 % (42.0-52.0); Immature Granulocytes # (auto) 0.04 K/uL (0.01-0.20); Immature Granulocytes % (auto) 0.5 %; Lymphocytes # (auto) 2.56 K/uL (1.20-3.40); Lymphocytes % (auto) 32.2 %; Mean Corpuscular Hemoglobin 29.3 pg (25.0-34.0); Mean Corpuscular Hgb Conc 34.3 g/dL (32.0-36.0); Mean Corpuscular Volume 85.4 fL (80.0-100.0); Mean Platelet Volume 9.6 fL (9.4-12.4); Monocytes # (auto) 0.92 K/uL (0.11-0.59); Monocytes % (auto) 11.6 %; Neutrophils # (auto) 3.98 K/uL (1.40-6.50); Platelet Count 347 K/uL (130-400); RDW Coefficient of Variation 15.1 % (11.5-14.5); RDW Standard Deviation 46.8 fL (36.4-46.3); Red Blood Count 4.44 M/uL (4.70-6.10); White Blood Count 7.96 K/ul (4.8-10.8)
[2023-05-21 07:58] LABS: Albumin Globulin Ratio 1.6 (0.9-2); Albumin Level 3.9 gm/dl (3.4-5.0); BUN Creatinine Ratio 22.9 (10-20); Bilirubin,Total 5.2 mg/dl (0.2-1.0); Calcium 9.6 mg/dl (8.6-10.3); Creatinine Clr Calc Pharmacy 62.6 ml/min; Est GFR (Non-African American) 62.2 ml/min; Globulin 2.5 gm/dl (2.5-4.0); Magnesium 2.1 mg/dl (1.7-2.4); Potassium 3.2 mmol/L (3.5-5.1); Total Protein 6.4 gm/dl (6.0-8.3)
[2023-05-21] MEDS: LABETALOL HCL 300 MG TAB PO SCH ×2 (09:05→20:17)
[2023-05-21] MEDS: ENOXAPARIN INJ 40 MG/0.4 ML SYR SQ SCH (09:06)
[2023-05-21] MEDS: EZETIMIBE 10 MG TAB PO SCH (09:07)
[2023-05-21] MEDS: TAMSULOSIN HCL 0.4 MG CAP PO SCH ×2 (09:08→20:16)
[2023-05-21] MEDS: SERTRALINE HCL 50 MG TABLET PO SCH (09:08)
[2023-05-21] MEDS: hydroCHLOROthiazide 25 MG TAB PO SCH (09:25)
[2023-05-21] MEDS ORDERED: POTASSIUM CHLORIDE CRTAB 20 MEQ TABCR PO STA ×2 (09:30→10:56)
[2023-05-21] MEDS ORDERED: MAGNESIUM OXIDE 400 MG TAB PO ONE (09:30)
[2023-05-21 09:52] LABS: HBSAG NON-REACTIVE (NON-REACTIVE); Hepatitis A Antibody IgM NON-REACTIVE (NON-REACTIVE); Hepatitis B Core Antibody IgM NON-REACTIVE (NON-REACTIVE)
--- NOTE | 2023-05-21 17:05 | Hospitalist Progress Note ---
Date of Service May 21, 2023 Assessment & Plan (1) Jaundice: Plan: -S/P Lap Cholecystectomy 04/[address] Murray. Recent travel to the [place], but symptoms started the day prior. -CT A/P without obvious CBD enlargement -Total bili 12.1 --> 6.4 --> 5.2 -MRCP: no evidence of choledocholithiasis or biliary ductal obstruction -[facility] GI consulted - EBV panel - indicative of past exposure - hepatitis panel - negative - trend LFTs - consider EUS outpatient -slight increase in LFTs today - reached out to [facility] GI to see if they would consider ERCP, awaiting response - will check CK with AM labs -Zofran PRN for nausea (2) Hypokalemia: Plan: -Patient on potassium sparing diuretics at home -Ordered KCl as outpatient, but patient unable to tolerate PO repletion -K of 2.8 on arrival, 60meq IV repletion ordered 05/19 - 05/20 K 2.7, Mag 1.8 --> 40meq and 2g Mag IV repletion ordered - recheck this afternoon - 05/21 K3.2, 40meq of PO repleption ordered (3) Anxiety: Plan: -Continue home Sertraline (4) BPH associated with nocturia: Plan: -Continue home Flomax (5) HTN (hypertension): Plan: -Continue home Lisinopril, Labetalol, HCTZ, Amlodipine (6) Hypercholesteremia: Plan: Hold Statin and Zetia with elevated LFTs Plan Dispo: continue inpatient stay VTE Prophylaxis: Lovenox Admission and Anticipated Discharge Date Admission Date: May 19, 2023 Subjective Met with patient and at bedside earlier this afternoon. Stated that they had not seen anyone from the GI team yet. Nirav states that he continues to be pain-free. Has not had a bowel movement today. No fevers. Overall feeling well but questioning what is causing his jaundice. I reached out to the [facility] GI team and they stated that they were not planning on seeing the patient today, I asked if they had any additional recommendations on cause of this patient's jaundice. I revisited patient and this evening. Informed them of what I learned from GI and what the current plan is. patient and are very concerned about being sent home without a diagnosis for what is causing his jaundice. Review of Systems Review of Systems: All systems reviewed & are unremarkable except as noted in Subjective Physical Exam Physical Exam: General: NAD, pleasant, VS as above HEENT: mild scleral icterus - unchanged from yesterday. Resp: normal respiratory effort, lungs clear to auscultation CV: RRR, no murmur, Abd: normal bowel sounds, non tender, no hepatosplenomegaly Extremities: Moves all extremities, no edema Neuro: A&O x3, Skin: intact, jaundice, especially near shoulders. Jaundice on scalp improving Results & Data Results & Data Vital Signs (Past 12 Hours) Vital Signs Temp Pulse Pulse Resp BP Pulse Ox O2 Del Method 05/21/23 15:27 36.6 C 68 16 124/68 95 Room Air 05/21/23 11:31 36.8 C 65 16 125/66 95 Room Air 05/21/23 09:10 58 L 57 L 05/21/23 07:30 36.8 C 61 14 124/76 96 Room Air PG Care Time/CCT Total # of Minutes Spent Total Time Spent with Patient: Total time spent is greater than 50% in coordination of care (as documented) at patient's floor/unit and/or counseling patient: Coding Level of Care Code 77001 SUB INP/OBS CARE 3/50MIN Diagnoses Jaundice R17 Hypokalemia E87.6 Anxiety F41.9 BPH associated with nocturia N40.1; R35.1 HTN (hypertension) I10 Hypercholesteremia E78.00
[2023-05-21] MEDS: lisinopril 40 MG TAB PO SCH (20:16)
[2023-05-21] MEDS: amLODIPine BESYLATE 5 MG TAB PO SCH (20:16)
[2023-05-22 07:20] LABS: Basophils # (auto) 0.12 K/uL (0.00-0.20); Basophils % (auto) 1.6 %; Eosinophils # (auto) 0.39 K/uL (0.00-0.50); Eosinophils % (auto) 5.1 %; Hematocrit (blood only) 37.1 % (42.0-52.0); Hemoglobin 12.7 g/dl (14.0-18.0); Immature Granulocytes # (auto) 0.08 K/uL (0.01-0.20); Immature Granulocytes % (auto) 1.1 %; Lymphocytes # (auto) 2.66 K/uL (1.20-3.40); Mean Corpuscular Hemoglobin 29.7 pg (25.0-34.0); Mean Corpuscular Hgb Conc 34.2 g/dL (32.0-36.0); Mean Corpuscular Volume 86.7 fL (80.0-100.0); Mean Platelet Volume 9.9 fL (9.4-12.4); Monocytes # (auto) 0.86 K/uL (0.11-0.59); Monocytes % (auto) 11.3 %; Neutrophils # (auto) 3.49 K/uL (1.40-6.50); Neutrophils % (auto) 45.9 %; Platelet Count 361 K/uL (130-400); RDW Coefficient of Variation 15.4 % (11.5-14.5); RDW Standard Deviation 49.1 fL (36.4-46.3); Red Blood Count 4.28 M/uL (4.70-6.10)
[2023-05-22 07:52] LABS: Albumin Globulin Ratio 1.6 (0.9-2); Albumin Level 3.8 gm/dl (3.4-5.0); BUN Creatinine Ratio 23.1 (10-20); Bilirubin Direct 1.3 mg/dl (0-0.2); Bilirubin,Total 3.2 mg/dl (0.2-1.0); Calcium 9.5 mg/dl (8.6-10.3); Creatinine Clr Calc Pharmacy 81.1 ml/min; Est GFR (African American) 98.6 ml/min; Est GFR (Non-African American) 85.1 ml/min; Globulin 2.4 gm/dl (2.5-4.0); Potassium 3.2 mmol/L (3.5-5.1); Total Protein 6.2 gm/dl (6.0-8.3)
[2023-05-22] MEDS ORDERED: POTASSIUM CHLORIDE CRTAB 20 MEQ TABCR PO STA (08:07)
[2023-05-22] MEDS: LABETALOL HCL 300 MG TAB PO SCH (08:15)
[2023-05-22] MEDS: SERTRALINE HCL 50 MG TABLET PO SCH (08:16)
[2023-05-22] MEDS: ENOXAPARIN INJ 40 MG/0.4 ML SYR SQ SCH (08:16)
[2023-05-22] MEDS: TAMSULOSIN HCL 0.4 MG CAP PO SCH (08:16)
--- NOTE | 2023-05-22 14:09 | Discharge Summary ---
Discharge Summary Date of Service May 22, 2023 Notes For Next Care Provider Patient with multiple frustrations with the GI team during his stay, VERY difficult to have them come to bedside. Encouraged GI follow up, but patient unsure he wants to follow up with [facility]. Medication Changes From Visit HCTZ and cholesterol medicine on hold Recommended he restart the PO potassium Admission HPI Per Admitting Provider Nirav Stout is a 72 year-old male with a past medical history of HTN, arthritis, anxiety, s/p cholecystectomy (04/23/23) who presented to the ED due to nausea and blane/martinez colored stools. He notes that he had been feeling well since his surgery- only occasional nausea. But last Saturday he was in [place] and experienced an episode of LUQ cramping/abdominal pain after taking his evening medications. However the next day he felt well enough to go on his scheduled trip to the [facility] with his . During the trip he felt under the weather with nausea, fatigue, etc. but starting this past Saturday he has had significant nausea and grayish colored stools (now loose/diarrhea consistency). He notes that he and his had been in the [place] on vacation when symptoms worsened, they only returned to the [place] in the past day. His also notes that he has appeared jaundiced in the past day. He denies abdominal cramping/pain, denies chest pain/shortness of breath, fever, bodyaches/chills. ED Course: -CT A/P obtained, no obvious widening of CBD -Dr. Phillips discussed case with [facility] DARNE[facility]/Dr. Garcia Principal Dx & Hospital Course #1 = Principal Diagnosis (1) Jaundice: -S/P Lap Cholecystectomy 04/[address] Murray. Recent travel to the [facility], but symptoms started the day prior. -CT A/P without obvious CBD enlargement -Total bili 12.1 --> 6.4 --> 5.2 --> 3.1 -LFTS imporving -MRCP: no evidence of choledocholithiasis or biliary ductal obstruction -[facility] consulted - EBV panel - indicative of past exposure - hepatitis panel - negative - trend LFTs - consider EUS outpatient - Reached out to have patient seen again by GI team, provider said would be able to round on him tomorrow, 05/23 but ultimately he just needed outpatient follow up, as it could take up to 8 weeks for LFTs to normalize. -Reached out to [facility], no acute intervention needed. Recommended Hep E send out (ordered) Patient with PCP appointment 2/2 - will check CMP prior to that appointment (2) Hypokalemia: -Patient on potassium sparing diuretics at home -K of 2.8 on arrival, 60meq IV repletion ordered 05/19 - 05/20 K 2.7, Mag 1.8 --> 40meq and 2g Mag IV repletion ordered - recheck this afternoon - 05/21 K3.2, 40meq of PO repleption ordered - 05/22 K3.2, 40 meq PO ordered Patient with PCP appointment 2/2 - will check CMP prior to that appointment Hold HCTZ on discharged, discussed taking PO potassium supplementation as prescribed. (3) Anxiety: -Continue home Sertraline (4) BPH associated with nocturia: -Continue home Flomax (5) HTN (hypertension): -Continue home Lisinopril, Labetalol, Amlodipine HCTZ continued to be held at discharge for hypokalemia (6) Hypercholesteremia: Hold Statin and Zetia with elevated LFTs Plan Dispo: discharge to home with close outpatient follow up Discharge Exam General: NAD, pleasant, VS as above HEENT: scleral icterus improved. Resp: normal respiratory effort, lungs clear to auscultation CV: RRR, no murmur, Abd: normal bowel sounds, non tender, no hepatosplenomegaly Extremities: Moves all extremities, no edema Neuro: A&O x3, Skin: intact, jaundice improved Updated Medication List Medication Instructions Recorded Confirmed Type demetrio seed oil-omega 3-6-9 1,000 mg 1 cap PO BID 03/31/20 05/09/23 History (630 mg-210 mg-72mg) capsule coenzyme Q10 200 mg oral wafer 200 mg PO BID 03/31/20 05/09/23 History multivitamin (Daily Multi-Vitamin 1 tab PO QPM 03/31/20 05/09/23 History tablet) labetalol 300 mg tablet 300 mg PO BID 90 days #180 tabs 08/27/22 05/09/23 Rx lisinopril 40 mg tablet 40 mg PO QPM #90 tabs 11/13/22 05/09/23 Rx hydrochlorothiazide 25 mg tablet 25 mg PO QAM #90 tabs 12/05/22 05/09/23 Rx tamsulosin 0.4 mg capsule (Flomax) 0.4 mg PO BID #180 caps 12/20/22 05/09/23 Rx amlodipine 10 mg tablet 10 mg PO QPM #90 tabs 03/26/23 05/09/23 Rx ezetimibe 10 mg tablet (Zetia) 10 mg PO QAM 04/10/23 05/09/23 History sertraline 50 mg tablet 50 mg PO QAM 04/10/23 05/09/23 History potassium chloride 20 mEq 20 meq PO BID #180 tabs 04/29/23 05/09/23 Rx tablet,extended release rosuvastatin 40 mg tablet 40 mg PO QAM #90 tabs 05/22/23 Rx Hospital Stay Data Consultations 05/19/23 00:45 ED Decision to Admit Stat 05/19/23 04:50 Consult Gastroenterology Routine 05/22/23 08:07 Consult Gastroenterology Routine Diagnostic Imagining Performed 05/18/23 21:22 CT abd pelvis IV con only Stat 05/19/23 02:31 MR MRCP Routine Pending Results Patient Have Any Pending Studies at Discharge: Yes (Hep E ) Discharge Instructions Given to Patient (Per Discharging Provider) Mr. Stout, You were hospitalized after your trip with abdominal pain and jaundice. During your stay it was found that your bilirubin and other liver ezymes were quite elevated, but improved during your stay as well as your jaundice. We did an MRCP which did not show any obstruction. Your hepatitis panel was negative. The additional Hep E lab was drawn today, 05/22 and results will come to your portal and can be followed up with GI or your PCP. The EBV results showed you had mono in the past, but no acute infection. During your stay, you were also noted to have low potassium. We replaced this orally and through the IV during your stay. It is important you continue your Oral potassium at home. I am also going to keep your diuretic (hydrochlorothiazide) on hold while you are still struggling with low potassium. This will be rechecked in the labs that I ordered for Saturday. Your cholesterol medications were also placed on hold as they can cause elevations in liver function tests. I will defer this decision to your PCP on when to resume these. I would recommend that you see a GI provider within the next 2-4 weeks. If you start to have abdominal pain or worsening jaundice please contact your PCP or return to the ER. It was our pleasure taking care of you, Felipa Londono PA-C Total Time Total Time Spent Total Time Spent (In Minutes): Time spend day of discharge 45 minutes including direct patient care, medication reconciliation, documentation, review of labs and images, and coordination of care. Coding Level of Care Code 26077 INP/OBS DISCH >30 MIN Diagnoses Jaundice R17 Hypokalemia E87.6 Anxiety F41.9 BPH associated with nocturia N40.1; R35.1 HTN (hypertension) I10 Hypercholesteremia E78.00
== END 2023-05-22 15:30 | disposition home or self-care (01) | DRG 443 ==
LOC: ED 20:49 → SUATTDRO 05-19 02:30 → 3W 05-19 02:30